=== PATIENT | female | born 1955 | race Caucasian/White ===

== ENCOUNTER 2017-10-21 07:42 | Day surgery (SDC) | payer OTHER ==
[2017-10-21] MEDS ORDERED: NALOXONE HCL INJ/PF 0.4 MG/1 ML SDV ONE (08:32)
[2017-10-21] MEDS ORDERED: ONDANSETRON HCL INJ/PF 4 MG/2 ML SDV ONE (08:32)
[2017-10-21] MEDS ORDERED: DIPHENHYDRAMINE HCL 50 MG/ML VIAL ONE (08:32)
[2017-10-21] MEDS ORDERED: EPINEPHRINE INJ 1 MG/10 ML DISP.SYRIN ONE (08:33)
[2017-10-21] MEDS ORDERED: GLUCAGON,HUMAN RECOMB 1 MG INJ ONE (08:33)
[2017-10-21] MEDS ORDERED: FLUMAZENIL INJ 0.5 MG/5 ML VIAL ONE (08:33)
[2017-10-21] MEDS: MIDAZOLAM 2 MG/2 ML INJ ONE ×3 (09:06→09:16)
[2017-10-21] MEDS: FENTANYL CITRATE INJ/PF 100 MCG/2 ML AMPUL ONE ×2 (09:08→09:14)
--- NOTE | 2017-10-21 09:21 | Operative Report ---
Operative Report DATE OF SURGERY: 10/21/17 Operative Report: The risks benefits and alternatives of the procedure explained to the patient in detail and informed consent is obtained.A GIF Olympus video scope was inserted into the patient's mouth and hypopharynx, the esophagus is identified intubated and insufflated, the scope was then advanced through the esophagus stomach and duodenum, retroflexion maneuver is done, the esophagus stomach and first and second portions of the duodenum examined PREOPERATIVE DIAGNOSIS: Dysphagia POSTOPERATIVE DIAGNOSIS: Schatzki's ring status post biopsy. No esophageal rings or furrows noted. No stricture noted. Gastritis status post biopsy. Duodenitis OPERATION: EGD with biopsy SURGEON: CLAYTON CORNELIUS ANESTHESIA: Moderate Sedation - 6 mg of Versed, 100 mcg of fentanyl. Conscious sedation monitoring time 30 minutes. TISSUE REMOVED OR ALTERED: As noted above. COMPLICATIONS: None. ESTIMATED BLOOD LOSS: None. INTRAOPERATIVE FINDINGS: As noted above. PROCEDURE: Patient tolerated procedure well. No immediate postprocedure complications are noted. Patient discharged in good condition. Discharge date 10/21/2017. Discharge diet: Regular. Discharge activity: Regular. 2-3 week follow-up to discuss findings. Patient is instructed call the office or proceed to the emergency room should there be any further problems or questions. We will wait on pathology.
[2017-10-21 10:27] VITALS: BP 131/66
== END 2017-10-21 10:30 | disposition home or self-care (01) ==
LOC: OROUT 07:42
PROVIDERS: ATTEND Internal Medicine Gastroenterology
PROC: 0DB68ZX Excision of Stomach, Via Natural or Artificial Opening Endoscopic, Diagnostic (ICD-10-PCS; 2017-10-21)
PROC: 0DB58ZX Excision of Esophagus, Via Natural or Artificial Opening Endoscopic, Diagnostic (ICD-10-PCS; principal; 2017-10-21 08:30)
DX: K22.2 Esophageal obstruction (principal); K29.50 Unspecified chronic gastritis without bleeding; K20.9 Esophagitis, unspecified
CPT/HCPCS: 43239; J2250; J3010; J0171; J1200; J1610; J2310; J2405; J3490

== ENCOUNTER 2018-02-18 18:55 | Emergency (ER) | payer OTHER ==
[2018-02-18] MEDS ORDERED: LIDOCAINE 5% (700 MG) TRANSDERMAL ADH..PATCH TP ONE (19:57)
[2018-02-18] MEDS ORDERED: ACETAMINOPHEN 325 MG TABLET PO ONE (19:57)
[2018-02-18] MEDS ORDERED: IBUPROFEN 600 MG TABLET PO ONE (19:57)
--- NOTE | 2018-02-18 20:25 | ER Document Report ---
ED General - General Chief Complaint: Leg Pain Stated Complaint: LEG PAIN Time Seen by Provider: 02/18/18 19:57 Notes: Patient is a 62 year old female who presents with left calf pain. The patient states that she witnessed her grandson bleeding, quickly turn to try to run to him but felt something pop in her left calf as she turned. She states that since that time she has noted swelling to the left medial calf and has had a dull, throbbing, constant pain. Attempts at walking worsen the pain. She has applied ice to the area with moderate improvement of the pain. She denies a history of similar injuries in the past. She has not seen her general doctor regarding today's concerns. She denies any use of anticoagulation. She denies any pain or injury to any other area of her body. TRAVEL OUTSIDE OF THE [place] IN LAST 30 DAYS: No - Related Data Allergies/Adverse Reactions: penicillin G [Penicillin G] Allergy (Severe, Verified 10/21/17 08:23) RASH Sulfa (Sulfonamide Antibiotics) Allergy (Severe, Verified 10/21/17 08:23) RASH Past Medical History - General Information source: Patient - Social History Smoking Status: Former Smoker Frequency of alcohol use: None Drug Abuse: None Lives with: Family Family History: Reviewed & Not Pertinent Patient has suicidal ideation: No Patient has homicidal ideation: No - Past Medical History Cardiac Medical History: Reports: Hx Hypertension Denies: Hx Coronary Artery Disease, Hx Heart Attack Pulmonary Medical History: Reports: Hx Bronchitis Denies: Hx Asthma - UNSURE??, Hx COPD - UNSURE??, Hx Pneumonia Neurological Medical History: Denies: Hx Cerebrovascular Accident, Hx Seizures Renal/ Medical History: Denies: Hx Peritoneal Dialysis Musculoskeltal Medical History: Reports Hx Arthritis Past Surgical History: Denies: Hx Hysterectomy, Hx Pacemaker - Immunizations Hx Diphtheria, Pertussis, Tetanus Vaccination: No Hx Pneumococcal Vaccination: 09/05/15 Review of Systems - Review of Systems Notes: Constitutional: Negative for fever. HENT: Negative for sore throat. Eyes: Negative for visual changes. Cardiovascular: Negative for chest pain. Respiratory: Negative for shortness of breath. Gastrointestinal: Negative for abdominal pain, vomiting or diarrhea. Genitourinary: Negative for dysuria. Musculoskeletal: Positive for left leg pain Skin: Negative for rash. Neurological: Negative for headaches, weakness or numbness. 10 point ROS negative except as marked above and in HPI. Physical Exam - Vital signs Vitals: Temp Pulse Resp BP Pulse Ox 98.4 F 75 20 153/74 H 96 02/18/18 19:14 02/18/18 19:14 02/18/18 19:14 02/18/18 19:14 02/18/18 19:14 Interpretation: Hypertensive Notes: PHYSICAL EXAMINATION: GENERAL: Well-appearing, well-nourished and in no acute distress. HEAD: Atraumatic, normocephalic. EYES: Pupils equal round and reactive to light, extraocular movements intact, sclera anicteric, conjunctiva are normal. ENT: nares patent, oropharynx clear without exudates. Moist mucous membranes. NECK: Normal range of motion, supple without lymphadenopathy LUNGS: Breath sounds clear to auscultation bilaterally and equal. No wheezes rales or rhonchi. HEART: Regular rate and rhythm without murmurs. 2+ DP pulses bilaterally ABDOMEN: Soft, nontender, normoactive bowel sounds. No guarding, no rebound. No masses appreciated. EXTREMITIES: Normal range of motion, there is mild swelling and ecchymosis to the left medial central calf that is tender to palpation. NEUROLOGICAL: No focal neurological deficits. Moves all extremities spontaneously and on command. PSYCH: Normal mood, normal affect. SKIN: Warm, Dry, normal turgor, no rashes or lesions noted. Course - Re-evaluation Re-evalutation: 02/18/18 20:23 Patient presents with swelling and pain to her left calf after she abruptly twisted the extremity will try and run to her grandson who had just injured himself. There is a moderately sized hematoma to the medial mid aspect of the left calf but no pain over the popliteal fossa, knee, hip or ankle. Tib-fib x- ray without any evidence of acute fracture. Suspect that the patient had a partial muscle or tendinous injury when she abruptly pivoted. I recommended conservative measures, orthopedic follow-up if she is failing to improve, crutches as needed as well as anti-inflammatories. At this time will discharge with return precautions and follow-up recommendations. Verbal discharge instructions given a the bedside and opportunity for questions given. Medication warnings reviewed. Patient is in agreement with this plan and has verbalized understanding of return precautions and the need for primary care follow-up in the next 24-72 hours. - Vital Signs Vital signs: Temp Pulse Resp BP Pulse Ox 97.3 F 66 18 153/73 H 97 02/18/18 21:31 02/18/18 21:31 02/18/18 21:31 02/18/18 21:31 02/18/18 21:31 - Diagnostic Test Radiology reviewed: Image reviewed, Reports reviewed Radiology results interpreted by me: 02/18/18 20:23 Left tib-fib x-ray: No acute fracture or dislocation Discharge - Discharge Clinical Impression: Pain of left calf Left leg injury Qualifiers: Encounter type: initial encounter Qualified Code(s): S89.92XA - Unspecified injury of left lower leg, initial encounter Condition: Good Disposition: HOME, SELF-CARE Additional Instructions: Your x-ray does not show any acute fracture today. You likely have a ligamentous strain with associated muscle injury. You should continue to take anti-inflammatories such as ibuprofen 600 mg every 6 hours. Continue to apply ice to the area is much your able. Please follow-up with your primary care physician if you do not have improving your symptoms in the next 1-2 weeks. Please return immediately if you develop weakness, numbness, spreading redness from the area, or any other symptoms that are concerning to you. Referrals: GABE KULKARNI [NO LOCAL MD] - Follow up as needed
--- NOTE | 2018-02-18 21:06 | RADIOLOGY REPORT (SQ) ---
EXAM DESCRIPTION: TIBIA FIBULA LEFT COMPLETED DATE/TIME: 02/18/2018 8:52 pm REASON FOR STUDY: pain, swelling COMPARISON: None. NUMBER OF VIEWS: Two views. TECHNIQUE: Two radiographic images acquired of the left tibia and fibula to include the knee and ank le in at least one projection. LIMITATIONS: None. FINDINGS: MINERALIZATION: Normal. BONES: A lucency which appears to involve the distal fibula on both the frontal and lateral projectio ns is of uncertain etiology or chronicity. Incidental note is made of calcaneal, patellar and tibial enthesopathy. SOFT TISSUES: No obvious swelling or foreign body. OTHER: No other significant finding. IMPRESSION: No discrete radiographic evidence of injury in this patient with reported calf pain. A fibular lucency seen on both the frontal and lateral projections does not definitively breech the cor janell; in the absence of overlying soft tissue edema, favor this to be a chronic finding. TECHNICAL DOCUMENTATION: JOB ID: [id number] [employer]- All Rights Reserved Reading location - IP/workstation name: [email or web address]
[2018-02-18 21:32] VITALS: BP 153/73
== END 2018-02-18 21:32 | disposition home or self-care (01) ==
LOC: ER 18:55
DX: S80.12XA Contusion of left lower leg, initial encounter (principal); M79.662 Pain in left lower leg; X50.0XXA Overexertion from strenuous movement or load, initial encounter; Y93.89 Activity, other specified; I10 Essential (primary) hypertension; Z88.0 Allergy status to penicillin; Z88.2 Allergy status to sulfonamides; Z87.891 Personal history of nicotine dependence
CPT/HCPCS: 99283